=== PATIENT | male | born 1990 | race Hispanic/Latino ===

== ENCOUNTER 2023-12-03 16:28 | Emergency (ER) | payer SELFPAY ==
[2023-12-03] VITALS (9 sets, daily range): BP systolic 92–118; BP diastolic 67–85; PULSE 78–101; RESP 16; TEMP 36.2–36.7; O2SAT 100
--- NOTE | ~2023-12-03 | CT_ITS ---
CT abdomen pelvis w con Ordering provider: Cindy Garcia APRN History: 33 years Male with . abdominal pain . Comparison: None. Technique: CT abdomen and pelvis with IV and without oral contrast. Automated exposure control and it erative reconstruction technique were employed. The dose-length product was 209.80 mGy-cm. 100 mL Omn ipaque 350 was given IV. Findings: VISUALIZED LOWER CHEST: Groundglass nodule is seen in the left upper lobe posteriorly measuring 7 mm. [address] follow-up advised. UPPER ABDOMINAL ORGANS: Liver: Mild hepatomegaly Gallbladder: Normal. Spleen: Normal. Stomach/duodenum: Normal. Pancreas: Normal. Adrenals: Normal. Kidneys: Normal. PELVIC ORGANS: The bladder is normal. BOWEL AND MESENTERY: Colon: No evidence of diverticulitis. Normal appendix. Small Bowel: Normal. No obstruction. Peritoneum/mesentery: No free air or free fluid. No mesenteric lymphadenopathy. RETROPERITONEUM: Normal aorta. No retroperitoneal lymphadenopathy. MUSCULOSKELETAL: Superficial soft tissues: The superficial soft tissues are normal. Bones: Normal spine. IMPRESSION: 1. No acute abdominal process with no evidence of appendicitis, diverticulitis or intestinal obstruc tion. 2. Mild hepatomegaly. Reviewed, dictated and finalized at location A. IMPRESSION: 1. No acute abdominal process with no evidence of appendicitis, diverticulitis or intestinal obstruction. 2. Mild hepatomegaly.
--- NOTE | ~2023-12-03 | CT_ITS ---
CT brain wo con Ordering provider: Izzy Cole PA-C History: 33 years Male with . syncope . Comparison: None. Technique: CT of the head without contrast. Radiation reduction technique utilized.The dose-length product was 605.33 mGy-cm. FINDINGS: BRAIN PARENCHYMA AND CSF SPACES: No midline shift, mass effect or hemorrhage. The brain parenchyma a nd CSF spaces are otherwise normal. VISUALIZED PARANASAL SINUSES: Well aerated. MASTOIDS: Well aerated. BONES: The bones appear intact. SOFT TISSUES: Visualized nasopharynx is normal. Superficial soft tissues are normal. IMPRESSION: No acute intracranial findings. Reviewed, dictated and finalized at location A.
--- NOTE | 2023-12-03 16:31 | ECG_ITS ---
Test Date: 2023-12-03 16:40:18 Measurements Intervals [place] Rate: 87 P: 89 VA: 155 QRS: 81 QRSD: 85 T: 75 QT: 346 QTc: 417 Interpretive Statements SINUS RHYTHM RSR' IN V1 OR V2, PROBABLY NORMAL VARIANT BASELINE ARTIFACT- I, II, III, AVR, AVL, AVF, V1-V6 BORDERLINE ECG No previous ECG available for comparison Electronically Signed On 12-03-2023 20:26:20 CDT by Rick Watson D.O.
--- NOTE | 2023-12-03 17:07 | ED.SYNCOPE ---
HPI - Syncope General Chief Complaint: Syncope <ANJELICA Chapman Last Filed: 12/03/23 17:20> Stated Complaint: syncopal episode <ANJELICA Chapman Last Filed: 12/03/23 17:20> Time Seen by Provider: 12/03/23 17:07 <ANJELICA Chapman Last Filed: 12/03/23 17:20> Focused HPI: Patient is a 33 y/o male who presents to the ED with c/o syncope. Patient reports he was at work approx 30 min prior to arrival when he began feeling dizzy. States he felt very tired, sweaty, and nauseous at that time. He then had a syncopal episode. He states his friend was nearby and lowered him to the ground. He did not fall. He states it was about 20 minutes until he was coming around again. He denied any seizure like activity. His friend then brought him here. He denied any seizure like activity. Patient is feeling better currently, but does still feel dizzy. He denies any CP, SOB, vision changes, focal weakness/numbness. Reports having intermittent L groin pain for several years as well as intermittent rectal bleeding for the past few weeks. GENERAL: Well-appearing, well-nourished, and in no acute distress. HEAD: Normocephalic, atraumatic. CHEST: Clear to auscultation. ?No respiratory distress. HEART: Regular rate and rhythm.? NEURO: ?Alert and oriented x3. No focal deficits appreciated. No pronator drift. 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 Patient screened in triage and initial orders placed.? ?Additional care and disposition to be based upon?diagnostic testing and treatment. <ANJELICA Chapman Last Filed: 12/03/23 17:20> Source: patient <ANJELICA Chapman Last Filed: 12/03/23 17:20> Mode of arrival: ambulatory <ANJELICA Chapman Last Filed: 12/03/23 17:20> Limitations: no limitations <ANJELICA Chapman Last Filed: 12/03/23 17:20> History of Present Illness HPI narrative: I agree with the assessment and note written by Izzy Cole PA-C. Patient reports he uses chewing tobacco every day and drinks approximately 1-2 shots of alcohol every day. He also endorses weight loss in the last couple of months. Patient reports he urinates small amounts and feels as though he has been dribbling instead of fully-emptying. He also endorses having a heavy feeling in his heart for a long time. <Cindy Garcia APRN - Last Filed: 12/03/23 23:43> Related Data Allergies/Adverse Reactions: Allergies Allergy/AdvReac Type Severity Reaction Status Date / Time No Known Allergies Allergy Verified 12/03/23 16:30 <Izzy Cole PA-C - Last Filed: 12/03/23 17:20> Review of Systems Review of Systems: All systems reviewed & are unremarkable except as noted in HPI and below <Cindy Garcia APRN - Last Filed: 12/03/23 23:43> Exam Narrative: GENERAL: Well appearing, well-nourished, non-toxic, in no acute distress. HEAD: Normocephalic, atraumatic. NECK: Supple. No adenopathy, no masses. RESPIRATORY: Airway patent, respirations nonlabored. Clear to auscultation bilaterally, no rales, rhonchi, wheezing. CARDIOVASCULAR: Regular rate and rhythm without murmurs, rubs, or gallops. Peripheral pulses 2+ and equal bilaterally. ABDOMINAL: Soft, mildly tender in LLQ, nondistended, no hepatosplenomegaly. Normoactive BS. MUSCULOSKELETAL: Moves all extremities. Strength/ROM intact without gross deformities. SKIN: Warm, dry, normal color. No rashes. NEURO: A&O X3. Speech clear. Cranial nerves II-XII grossly intact. Steady gait. No ataxic movements. PSYCHIATRIC: Appropriate mood and affect. Normal interaction. <Cindy Garcia APRN - Last Filed: 12/03/23 23:43> Course Vital Signs Vital signs: Vital Signs Temperature 36.2 C L 12/03/23 16:31 Pulse Rate 86 12/03/23 16:31 Respiratory Rate 16 12/03/23 16:31 Blood Pressure 92/67 L 12/03/23 16:31 Pulse Oximetry 100 12/03/23 16:31 Oxygen Delivery Room Air
[2023-12-03 17:25] LABS: Basophils Absolute Auto 0.1 K/mm3 (0.0-0.1); Basophils Percent Auto 0.7 % (0.2-1.2); Eosinophils Absolute Auto 0.2 K/mm3 (0-0.3); Eosinophils Percent Auto 3.1 % (0-4.4); Hematocrit 43.2 % (42.0-52.0); Hemoglobin 15.2 g/dL (14.0-18.0); Immature Granulocyte Absolute 0.02 K/mm3 (0.00-0.031); Immature Granulocyte Percent A 0.3 % (0-0.5); Lymphocytes Absolute Auto 1.85 K/mm3 (0.9-3.2); Lymphocytes Percent Auto 26.5 % (18.3-44.2); Mean Corpuscular HGB Conc 35.2 g/dl (32-36); Mean Corpuscular Volume 93.9 fl (80-100); Mean Platelet Volume 10.2 fl (7.4-10.4); Monocytes Absolute Auto 0.6 K/mm3 (0.1-0.6); Monocytes Percent Auto 8.4 % (2.6-8.5); Neutrophils Absolute Auto 4.3 K/mm3 (1.3-6.7); Platelet Count Result 279 k/mm3 (150-375); Red Cell Distribution Width 12.6 % (11.5-14.5)
[2023-12-03 17:38] LABS: Prothrombin Time 13.3 Seconds (11.1-14.7)
[2023-12-03 17:39] LABS: Partial Thromboplastin Time 24.5 Seconds (22.3-36.8)
[2023-12-03 17:44] LABS: Add Urine Microscopic? NO; Appearance Urine Clear (Clear); Bilirubin Urine Negative (Negative); Blood Urine Negative (Negative); Color Urine Yellow (Yellow); Glucose Urine UA Negative (Negative); Ketones Urine Trace mg/dL (Negative); Leukocyte Esterase Ur Negative LEU/UL (Negative); Nitrate Urine Negative (Negative); Protein Urine Negative (Negative); Specific Grav Ur 1.024 (1.001-1.035); pH Urine 6.5 (5.0-9.0)
[2023-12-03 17:46] LABS: Troponin I < 0.012 ng/mL (0.000-0.034)
[2023-12-03] MEDS: SODIUM CHLORIDE 0.9% IV 1,000 ML 999 ML IV CONT (17:47)
[2023-12-03 17:53] LABS: Alanine Aminotransferase 28 U/L (6-50); Albumin Level 4.1 g/dL (3.5-5.1); Alkaline Phosphatase 94 U/L (38-126); Anion Gap 11 mmol/L (4-12); Aspartate Amino Transferase 35 U/L (17-59); Bilirubin,Total 0.6 mg/dL (0.2-1.3); Blood Urea Nitrogen 8 mg/dL (9-20); Calcium 8.4 mg/dL (8.4-10.2); Carbon Dioxide 27 mmol/L (22-30); Chloride 99 mmol/L (98-107); Estimated CRCL calculation 88 ml/min; Estimated Glomerular Filt Rate > 60; Glucose 120 mg/dL (65-110); Lipase 105 U/L (23-300); Magnesium 2.3 mg/dL (1.6-2.3); Potassium 3.7 mmol/L (3.4-5.0); Sodium 137 mmol/L (137-145)
--- NOTE | 2023-12-03 19:15 | PC.NURSE ---
Report received from MARY CARMEN [place]. Assumed care of patient at this time.
[2023-12-03 19:34] LABS: Amphetamine Screen Urine Negative (Negative); Barbiturate Screen Urine Negative (Negative); Benzodiazepines Screen Urine Negative (Negative); Cannabinoid Screen Urine Negative (Negative); Cocaine Screen Urine Negative (Negative); Methadone Screen Urine Negative (Negative); Opiate Screen Urine Negative (Negative); Phencyclidine Screen Urine Negative (Negative)
[2023-12-03 19:42] LABS: Ethanol 168 mg/dL (<10)
[2023-12-03 22:19] LABS: Troponin I < 0.012 ng/mL (0.000-0.034)
== END 2023-12-04 00:13 | disposition home or self-care (01) ==
PROVIDERS: Physician Assistant; Emergency Provider Registered Nurse
DX: E86.0 Dehydration (principal); R10.9 Unspecified abdominal pain; F17.220 Nicotine dependence, chewing tobacco, uncomplicated; R94.31 Abnormal electrocardiogram [ECG] [EKG]; R16.0 Hepatomegaly, not elsewhere classified
CPT/HCPCS: 36415; 70450; 74177; 80053; 80307; 81003; 83605; 83690; 83735; 84484; 85025; 85610; 85730; 93005; 96360; 99284; J7030; Q9967